=== PATIENT | female | born 1995 | race Asian ===

== ENCOUNTER 2017-11-08 15:36 | Emergency (ER) | payer OTHER ==
[~2017-11-08] VITALS: Ht 157.5 cm; Wt 55.3 kg
[2017-11-08] MEDS ORDERED: PRENATAL + DHA1 EAC1 (16:16)
== END 2017-11-08 21:39 | disposition home or self-care (01) ==
LOC: ER 15:36
DX: O26.892 Other specified pregnancy related conditions, second trimester (principal); O99.342 Other mental disorders complicating pregnancy, second trimester; F41.8 Other specified anxiety disorders; Z34.02 Encounter for supervision of normal first pregnancy, second trimester

== ENCOUNTER 2018-01-14 22:04 | Outpatient (CLI) | payer OTHER ==
[~2018-01-14 22:04] MED LIST: PRENATAL + DHA1 EAC1
== END 2018-01-15 14:13 | disposition home or self-care (01) ==
LOC: OBS/DEL 22:04
DX: O47.03 False labor before 37 completed weeks of gestation, third trimester (principal); Z34.83 Encounter for supervision of other normal pregnancy, third trimester; O99.343 Other mental disorders complicating pregnancy, third trimester; F41.8 Other specified anxiety disorders